=== PATIENT | male | born 1955 | race Caucasian/White ===

== ENCOUNTER 2017-07-03 16:01 | Inpatient (IN) | payer OTHER ==
[~2017-07-03] VITALS: Ht 167.6 cm; Wt 95.5 kg
[2017-07-03 18:31] VITALS: BP 96/63; PULSE 60; RESP 16; O2SAT 96
[2017-07-03] MEDS ORDERED: PANT20T PO (18:35)
--- NOTE | 2017-07-03 19:11 | NUR ---
Admit note Patient arrived to room via ALS at 1820, awake a/o x 4, denies chest pain, nausea or sob. Amb indep in room, steady gait. VSS, tele SB 60. Patient oriented to call light, phone, tv bathroom and poc. Dr Fan paged and orders recieved to continue Heparin gtt cardiac protocol.
[2017-07-03 19:44] VITALS: BP 124/68; PULSE 80; RESP 16; O2SAT 97
[2017-07-03] MEDS ORDERED: Ondansetron 2 mg/mL 2 mL Inj IVPUSH PRN (20:30)
[2017-07-03] MEDS ORDERED: Heparin 5,000 Unit/mL Inj IVPUSH PRN (20:30)
[2017-07-03] MEDS ORDERED: Atropine 1 mg/10 mL (Code) Syringe IVPUSH PRN (20:30)
[2017-07-03] MEDS ORDERED: Alum-Mag Hydrox-Simeth 30 mL Suspension PO PRN (20:30)
[2017-07-03] MEDS ORDERED: Heparin 25K Unit/500mL 0.45 NS 25,000 UNIT in IV Premix 1 EACH IV SCH (20:30)
[2017-07-03] MEDS ORDERED: Senna-Docusate 8.6-50 mg Tablet PO PRN (20:30)
[2017-07-03] MEDS ORDERED: Polyethylene Glycol (PEG) 17 Gm Powder PO PRN (20:30)
--- NOTE | 2017-07-03 21:32 | PCM.HPMED ---
Subjective Date of Service Jul 03, 2017 Primary Provider: Admitting Physician: Vincent Hermosillo DO Primary Care Physician: Zachary Attending Physician: Vincent Hermosillo DO Admit Status: Direct Admit ([facility]) Chief Complaint: chest pressure History of Present Illness: Mr. Melgar is an extremely pleasant 61-year-old gentleman with no known coronary artery disease, no known history of diabetes, and never smoker, that presented to [facility] with a 2 day history of chest pressure associated sore throat sensation, AMARO, nausea, and radiation of pressure to his neck. Initial workup revealed abnormal EKG findings of anterolateral ST depressions and inferior Q waves, in addition to an elevated troponin I. He was transferred to [facility] after consultation with our cardiology team for further evaluation and workup of NSTEMI, including initiation of heparin drip. - Hospital day one Mr. Melgar states that he has been working with renovations on his new home, including a significant amount of yard work. The day prior to admission, he noted that his throat began to hurt, similar to a sore throat, and he began to have trouble swallowing. At that time, he also noticed that he developed chest pressure which seemed to have radiated from his abnormal throat symptoms. He denied any associated shortness of breath at that time. Day of admission, he noted that he began to feel worse, and sought care be. That would be, EKG revealed anterolateral ST depressions, and stat labs revealed an elevated troponin I. He describes the feeling as a mild chest pressure, where he feels "off" and feels as if he should "slow down." He cannot identify any exacerbating triggers, as he does not believe it is associated with exertion, as he was working in his yard and the pain did not increase. Denies any associated shortness of breath, cough, fever, emesis. He did admit to some mild nausea, headache. He denies any history of similar symptoms or presentation. He does note a history of GERD, but he describes this pain as feeling "different," and he also denies history of tobacco use. He states that the symptoms leading to his admission lasted approximately 15 minutes, and presented in a waxing and waning fashion. Denied any associated blurred vision with the symptoms. [facility] cardiology team was contacted at [facility], and recommendations included transfer patient to our facility, and initiation of a heparin drip, with plans for possible catheterization. At [facility], initial labs included white count 12.5, hemoglobin 15.2, hematocrit 44.9, platelets 226; sodium 140, potassium 4.0, creatinine 1.2; total bili 2.1, AST 90, ALT 66, alkaline phosphatase 62; troponin I or 0.00, lipase 22; EKG from [facility] revealed anterior and lateral ST depressions and inferior lead Q waves with a QTC of 403 and a rate of 77. Patient was diagnosed with an STEMI and transferred to [facility] on heparin gtt and possible plan for catheterization. Patient was transferred in stable condition. Review of Systems: Complete ROS obtained, pertinent positives and negatives as noted in HPI Allergies Coded Allergies: No Known Allergies (Unverified , 07/03/17) Home Medications Pt reports: Pantoprazole daily Denies any other medications PMH Pt reports: GERD Denies h/o CAD, DM, CVA/TIA Surgical History None reported Family History Pt reports: Paternal side of family has extensive coronary artery disease with multiple instances of myocardial infarction and CABG. 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 Hx Alcohol Use: Yes Alcoholic Drinks Per Day: 1-2 week Hx Substance Use: No Living Arrangement: with Family (with , Evelyn Evangelista) Exam Vital Signs Vital Sign - Last Date Time Temp Pulse Resp B/P Pulse Ox O2 Delivery O2 Flow Rate FiO2 07/03/17 19:44 36.8 80 16 124/68 97 Room Air Exam General: Alert and oriented 3; pleasant gentleman resting supine in bed in no acute distress HEENT: Atraumatic, normocephalic, sclera anicteric, membranes moist Neck: Full range of motion without pain Cardiac: Regular rate and rhythm at time of examination without any appreciable murmurs Respiratory: Equal airflow all centeno without any wheeze or rhonchi Abdomen: Soft, nontender, nondistended Extremities: No edema appreciated Skin: Warm and dry MSK: 5/5 strength 4/4 extremities at major joints of the shoulder, hip Neuro: Cranial nerves II-XII grossly intact, speech without slur, facial expressions equal and symmetric Psych: Appropriate mood, affect, and responses to questions; good insight and judgment Assessment & Plan Mr. Melgar is an extremely pleasant 61-year-old gentleman with no known coronary artery disease, no known history of diabetes, and never smoker, that presented to [facility] with a 2 day history of chest pressure associated sore throat sensation, AMARO, nausea, and radiation of pressure to his neck. Initial workup revealed abnormal EKG findings of anterolateral ST depressions and inferior Q waves, in addition to an elevated troponin I. He was transferred to [facility] after consultation with our cardiology team for further evaluation and workup of NSTEMI, including initiation of heparin drip. - Hospital day one NSTEMI, acute, present on admission, under evaluation - [facility] EKG: ant/lat ST depression with inferior lead Q waves; QTc 403, P77 - Initial troponin I: 4.00; continue to trend troponin - EKG prn CP/cardiac sx - Morphine prn - Cardiology consult order placed; Dr. Fan was contacted by [facility] - Continue heparin gtt/cardiac protocol - NPO midnight - Tele - AM EKG - Labs to [facility] CP: thyroid, electrolytes, troponin, CK, lipids - Initiated beta blockade, statin, ASA Elevated LFTs, chronicity unknown, present on admission, presumed stable - [facility] labs: total bili 2.1, AST 90, ALT 66, alk phos 52 - Pt reports 1-2 whiskey/week - Consider abd U/S for further evaluation GERD, chronic, presumed stable - Continue home PPI History of treated latent TB, chronic, presumed stable - CXR report from [facility]: "suspect chronic lung disease" - No h/o tobacco use - Repeat CXR in am PRN: bowel, fever, pain, nausea GI: PPI DVT: On cardiac hep gtt Diet: NPO midnight (0000 07/04/2017) Code: FULL CODE Pt Status: Due to presenting symptoms, risk of adverse events, and likely course of care, patient likely to stay greater than 2 midnights; admitted as inpatient status Pain Evaluation: Adequate Pain Control GI Prophylaxis: Proton Pump Inhibitor VTE Prophylaxis: Other (cardiac hep gtt) Resuscitation Status: CPR: Attempt Resuscitation Attending Statement The patient was seen and examined together with Dr. Santos on 07/03 and I agree with the history, exam and plan as outlined in the note above. Sulma Santos DO Jul 03, 2017 20:10 Darren Montalvo MD Jul 04, 2017 01:24
[2017-07-03] MEDS ORDERED: Famotidine Inj 20 MG in IV Premix 1 EACH IV SCH (21:36)
[2017-07-03 21:44] LABS: TROPONIN T 0.565 ug/L (0.0-0.011)
[2017-07-03 23:19] VITALS: BP 100/64; PULSE 60; RESP 18; O2SAT 97
[2017-07-03 23:20] VITALS: BP 100/64; PULSE 60; RESP 18; O2SAT 97
[2017-07-04] VITALS (15 sets, daily range): BP systolic 93–107; BP diastolic 54–65; PULSE 52–65; RESP 12–23; O2SAT 90–98
[2017-07-04] MEDS: Sodium Chloride LOK Flush 10 mL Syringe IVFLUSH SCH ×3 (00:30→18:44)
[2017-07-04 03:54] LABS: BASOPHILS % (AUTO) 0.1 % (0-3); EOSINOPHILS % (AUTO) 0.2 % (0-5); MONOCYTES % (AUTO) 9.3 % (4-12); Mean Corpuscular Hemoglobin 30.7 pg (27.0-35.0); Mean Corpuscular Volume 90.2 fL (81-100); NEUTROPHILS % (AUTO) 78.5 % (40-74); Platelet Count 218 bil/L (150-400)
[2017-07-04 04:36] LABS: Magnesium 1.9 mg/dL (1.6-2.6); Phosphorus 3.7 mg/dL (2.5-4.9)
[2017-07-04 04:38] LABS: TROPONIN T 1.01 ug/L (0.0-0.011)
--- NOTE | 2017-07-04 04:41 | NUR ---
Heparin/Labs/NPO Cardiac heparin gtt infusing at 1350 units/hour, last PTT 61. Troponin elevated to 1.01, CK-MB 109.5. Page to hospitalist resident. Patient denies chest pain and shortness of breath. NPO after midnight pending cath procedure.
[2017-07-04] MEDS ORDERED: Pantoprazole 4 mg/mL 10 mL Inj IVPUSH SCH (07:30)
--- NOTE | 2017-07-04 09:27 | PCM.PNMED ---
Subjective Date of Service Jul 04, 2017 Subjective Overnight patient reports no events. Mostly restful night aside from the continual interruptions from hospital staff. Heparin continues. Troponin continues to trend up last measurement 1.01. Nothing by mouth after midnight, pending cath procedure today. Exam Vital Signs Vital Sign - Last Date Time Temp Pulse Resp B/P Pulse Ox O2 Delivery O2 Flow Rate FiO2 07/04/17 08:18 36.5 62 12 101/62 93 Room Air Intake and Output 07/03/17 07/03/17 07/04/17 Cumulative From/Thru 15:00 23:00 07:00 07/03/17 18:30 - 07/04/17 05:46 Intake Total 335 ml 335 ml Output Total 500 ml 500 ml Balance -165 ml -165 ml Intake Oral 0 ml 0 ml IV Total 335 ml 335 ml Output Urine Total 500 ml 500 ml # Bowel Movements 0 0 Exam General: Lying in hospital bed in no acute distress, well-developed, well- nourished, appropriately interactive HEENT: Normocephalic, atraumatic. Pupils equal, round, and reactive to light and accommodation. Anicteric sclerae moist mucosa. Neck: Supple with full range of motion. No jugular venous distension. Cardiovascular: Regular rate and rhythm with no murmurs, rubs, or gallops appreciated Pulmonary: Clear to auscultation bilaterally with no crackles, wheezes, or rhonchi. Normal respiratory effort with no use of accessory muscles. Abdomen: Soft, nontender, nondistended. Extremities: No clubbing, cyanosis, edema Skin: Normal temperature, turgor, and texture Neurological: Cranial nerves grossly intact. Psychiatric: Normal mood and affect. Alert and oriented to person, place, and time. IVs and Medications Medications Reviewed: Medications were reviewed in detail Lab and Diagnostics Result Diagram: 07/04/17 0345 07/04/17 0345 X-Rays, CTs and MRIs . X-RAY CHEST ONE VIEW, PORTABLE IMPRESSION: No acute cardiopulmonary disease. Dictated by: Irineo BATEMAN Interpreted: Jayne Tian MD on 07/04/2017 Assessment & Plan Mr. Melgar is an 61-year-old gentleman with no known coronary artery disease, no known history of diabetes, never smoker admitted for NSTEMI NSTEMI, acute, present on admission, under evaluation - [place] EKG: ant/lat ST depression with inferior lead Q waves; QTc 403, P77 - Troponin continues to be elevated - EKG prn CP/cardiac sx - Morphine prn - Scheduled for cardiac catheterization technician today - Continue heparin gtt/cardiac protocol - NPO midnight - Tele - Initiated beta blockade, statin, ASA Elevated LFTs, chronicity unknown, present on admission, presumed stable - [facility] labs: total bili 2.1, AST 90, ALT 66, alk phos 52 - Pt reports 1-2 whiskey/week - We will consider abd U/S for further evaluation, post catheterization GERD, chronic, presumed stable - Continue home PPI History of treated latent TB, chronic, presumed stable - CXR report from [facility]: "suspect chronic lung disease" - No h/o tobacco use - Repeat CXR no cardiopulmonary disease PRN: bowel, fever, pain, nausea GI: PPI DVT: On cardiac hep gtt Diet: NPO midnight (0000 07/04/2017) Code: FULL CODE Pt Status: Remains inpatien, pending catheterization lab results GI Prophylaxis: Proton Pump Inhibitor VTE Prophylaxis: Other (cardiac hep gtt) Resuscitation Status: CPR: Attempt Resuscitation Time spent 20 minutes Attending Statement Patient has been seen and examined by myself with medical front desk coordinator and agree with above history, physical, assessment and plan. YANETH MIRANDA DO Jul 04, 2017 09:27 Megan Barry MD Jul 04, 2017 15:59 YANETH MIRANDA DO Jul 04, 2017 09:27
--- NOTE | 2017-07-04 09:30 | DRSVH ---
PROCEDURE: X-RAY CHEST ONE VIEW, PORTABLE ([id number]) INDICATIONS: CHEST PAIN TECHNIQUE: One view of the chest was acquired. COMPARISON: None. FINDINGS: Surgical changes and devices: None. Lungs and pleura: No pleural effusions or pneumothorax. Lungs are clear. Mediastinum: Mediastinal contours appear normal. Heart size is normal. Bones and chest wall: No suspicious bony lesions. Overlying soft tissues appear unremarkable. IMPRESSION: No acute cardiopulmonary disease. Dictated by: Irineo BATEMAN Interpreted: Jayne Tian MD on 07/04/2017 at 9:11 Approved by: Jayne Tian M.D. on 07/04/2017 at 9:28
[2017-07-04] MEDS ORDERED: 0.9% Sodium Chloride 1,000 ML IV ONE (12:57)
--- NOTE | 2017-07-04 13:20 | CONS ---
[address] [address] CONSULTATION REPORT PATIENT: JANELLE MARSH : 1955 MR#: [id number] ADMIT: 07/03/2017 JOB ID: [id number] CARDIOLOGY CONSULTATION: DATE OF SERVICE: 07/04/2017 CHIEF COMPLAINT: Shortness of breath. HISTORY OF PRESENT ILLNESS: The patient is a 61-year-old man with substernal chest pain and shortness of breath that started as he was weed whacking his property. He says that this started quite abruptly. He had two episodes yesterday; each episode lasted 15 minutes and this problem was associated with dynamic ST depressions and elevated troponin T. Cardiology is consulted to assist with management. He says that the first episode began after he was weed whacking outside and it resolved after resting. The second episode occurred when he was cleaning cobwebs in a [place] garage. He says the chest pain shot into his neck. At this moment in time, he is chest-pain free. PAST MEDICAL HISTORY: 1. Hyperlipidemia - controlled. 2. Gastroesophageal reflux disease. PAST SURGICAL HISTORY: None. FAMILY HISTORY: Significant for coronary artery disease in all his male relatives. He says nobody has lived to be over 60 years old in his family. SOCIAL HISTORY: The patient is a lifetime nonsmoker. He is accompanied today by his . 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 ALLERGIES: No known drug allergies. MEDICATIONS: At home: Protonix 20 mg daily. Hospital medications: 1. Famotidine 20 mg twice a day. 2. Metoprolol tartrate 12.5 mg twice a day. 3. Aspirin 81 mg daily. 4. Lipitor 40 mg daily. REVIEW OF SYSTEMS: No gastrointestinal bleeding. No hematuria. No epistaxis. Otherwise 10 point review of systems is negative. PHYSICAL EXAMINATION: The patient appears his stated age. Eyes: No scleral icterus. Neck is supple. No lymphadenopathy. Head: Normocephalic, atraumatic with male pattern baldness. Heart normal S1, S2. No murmurs. Lungs: Clear to auscultation anteriorly. Abdomen is soft, positive bowel sounds. No hepatosplenomegaly. Extremities warm and well perfused. No clubbing, cyanosis, or edema. Skin: No rashes or lesions. Vascular exam: Right common femoral artery vascular exam shows no bruits and normal intact pulsation. LABORATORY DATA: Labs reviewed. CBC is significant for elevated white count with left shift. Hematocrit is normal. Creatinine is 1. Mild transaminitis. AST 128, ALT 65, troponin T peaked at one. TSH, free T4 are normal. Total cholesterol 170, triglycerides 94, HDL 43, LDL 108. CARDIAC DATA: The patient's EKG demonstrates normal sinus rhythm. Normal axis. No left ventricular hypertrophy. There is [address] depression in lead 1, V5 and V6. Echocardiogram is ordered and is pending. ASSESSMENT AND PLAN: In summary, this is a 61-year-old man admitted with a non-ST segment elevation myocardial infarction. He has elevated troponin and ST changes. He would benefit from cardiac catheterization and possible stenting. Consent obtained, all questions answered. Order placed. Thank you very much for the opportunity to evaluate this patient.
--- NOTE | 2017-07-04 13:57 | NUR ---
Social Work: Initial Assessment/Multidisciplinary Rounds D: Per EMR Review, pt is a 61 year old male admitted for Increased Trop, N Stemi. Pt is Don Jones with no LTC or VA benefits. Pt does not have a PCP and declined an appointment at the [facility]. NOK is Keyla Melgar, , . Advanced directives completed- WOOL FLEECE GRADER requested copy for chart. Readmit score is low, 0/8. Pt discussed in Multidisciplinary rounds. Capacity for self care discussed; no concerns or needs at this time. WOOL FLEECE GRADER met with patient at bedside with present. Sw role explained, contact info and d/c planning checklist provided. See initial assessment. Pt lives in [place] with his , in a two story home with no steps to enter. Pt states the main living quarters are on the main floor. Pt expresses no concerns navigating stairs. Pt is I with ADLs, uses no DME and have never had HH or Skilled rehab. Pt and both anticipate pt to discharge home via POV once medically stable. A: Pt who is I at baseline. P: Anticipate pt to discharge home via POV once medically stable; WOOL FLEECE GRADER to continue to follow to assess for discharge needs. ASHER Sullivan Addendum: 07/04/17 at 1401 by JENNY GIRARD Amended: Links added.
[2017-07-04] MEDS ORDERED: Heparin 1,000 Units/500 mL NS Premix IV ONE (14:12)
[2017-07-04] MEDS ORDERED: Heparin 10,000 Unit/1,000 mL NS Premix IV ONE (14:12)
--- NOTE | 2017-07-04 14:39 | NUR ---
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 Pt stable and w/o complaints. Heparin dc'd prior. Right dorsalis pedis pulse marked. Will await pt return.
[2017-07-04] MEDS ORDERED: fentaNYL-PF 50 mCg/mL 2 mL Inj ONE (14:47)
[2017-07-04] MEDS ORDERED: Heparin 1,000 Unit/mL 10 mL Inj ONE (15:17)
[2017-07-04] MEDS ORDERED: Atropine 1 mg/10 mL (Code) Syringe ONE (15:24)
--- NOTE | 2017-07-04 16:08 | CS94 ---
[address] [address] DIAGNOSTIC CARDIAC CATHETERIZATION PATIENT: JANELLE MARSH : 1955 MR#: [id number] ADMIT: 07/03/2017 JOB ID: [id number] SERVICE DATE: 07/04/2017 CARDIAC CATHETERIZATION: PATIENT PRESENTATION: The patient is a 61-year-old man with hypertension, hyperlipidemia comes in with non STEMI and referred for cardiac catheterization. PROCEDURES PERFORMED: 1. Right common femoral artery vascular access under ultrasound guidance. 2. Right common femoral artery femoral angiogram. 3. Cardiac catheterization-selective coronary angiograms. 4. Hemodynamic measurement left ventricular end-diastolic pressure. METHOD: Following informed consent, the patient was prepped and draped in the usual sterile fashion. A 6-Ukrainian sheath was placed in the right common femoral artery. Sheath placement was confirmed via femoral angiogram. JL-4 and JR-4 catheters were used to engage left main and right coronary artery ostia respectively. Hand injection in craniocaudal angulation was used to obtain selective coronary angiograms. All exchanges were performed over a wire. Pigtail was placed into the left ventricle. Left ventricular end-diastolic pressure was recorded. The pigtail was withdrawn from the left ventricle into the aorta under continuous hemodynamic monitoring. There were no complications in the immediate postprocedure period. FINDINGS: HEMODYNAMICS: Heart rate 67 beats per minute. Blood pressure was 105/10. Left ventricular end-diastolic pressure was 30 mmHg. There was no evidence of aortic stenosis based on pullback. FEMORAL ANGIOGRAM: Right common femoral artery gives rise to SFA and profunda. The sheath enters the right common femoral artery at the lower third of the femoral head. There is no evidence of contrast extravasation or dissection. CORONARY ANGIOGRAMS: Left main gives rise to SFA and profunda. There is excellent blow-back and no dampening on engagement. Left anterior descending wraps around the vessel. It demonstrates some 40%-50% mid LAD stenosis immediately following the first septal perforators. However, these lesions do not appear to be hemodynamically significant. Left anterior descending gives rise to medium first diagonal branch, medium second diagonal branch, and some small additional diagonal branches. There is also a medium-sized third diagonal branch. Again, while there is some nonobstructive disease present, the worst disease is localized just proximal to the third diagonal branch and it is about 50% stenosis. Circumflex is a nondominant vessel. It gives rise to a big first obtuse marginal branch, medium second obtuse marginal branch. No obstructive lesions are seen. There is a 30%-40% proximal circumflex lesion. Right coronary artery: This is a dominant vessel which is primarily fed via left to right collaterals. This vessel is occluded in its distal portion. IMPRESSION: 1. A 50% mid left anterior descending lesion. 2. Occluded mid right coronary artery with [id number] collaterals. PLAN: Proceed with right coronary artery intervention and workup the left anterior descending lesion at a later date. Thank you very much for the opportunity to participate in this patient's care.
[2017-07-04] MEDS ORDERED: 0.9% Sodium Chloride 250 ML BOLUS IV PRN (16:40)
[2017-07-04] MEDS ORDERED: Atropine 1 mg/10 mL (Code) Syringe IVPUSH PRN (16:40)
[2017-07-04] MEDS ORDERED: Ondansetron 2 mg/mL 2 mL Inj IVPUSH PRN ×2 (16:40→19:10)
[2017-07-04] MEDS ORDERED: 0.9% Sodium Chloride 400 ML (4 HRS) IV ONE (16:40)
[2017-07-04] MEDS ORDERED: Clopidogrel 300 mg Tablet (LOADING DOSE) PO ONE (16:40)
[2017-07-04] MEDS ORDERED: Sodium Chloride LOK Flush 10 mL Syringe IVFLUSH PRN (16:40)
--- NOTE | 2017-07-04 16:54 | NUR ---
Edwardo Coronado R.N. Pt remains stable, right groin intact. Dr Fan at bedside to speak with patient and his .
--- NOTE | 2017-07-04 17:17 | NUR ---
Received pt. care. Pt. denies complaints and is lying resting quietly with at bedside.
--- NOTE | 2017-07-04 17:38 | DI95 ---
[address] [address] INTERVENTIONAL CARDIAC CATHETERIZATION PATIENT: JANELLE MARSH : 1955 MR#: [id number] ADMIT: 07/03/2017 JOB ID: [id number] PROCEDURE: Percutaneous intervention on chronically occluded RCA. PROCEDURAL DETAILS: The reader is referred to the procedure log for complete details. Briefly, right femoral approach, 6-[place]awk system. A right coronary guide was placed in the RCA and a Runthrough wire was used to cross this lesion. Further details are enumerated in the procedure log, to which the reader and the coders are referred. Briefly, Dr. Fan performed a diagnostic angiogram. This patient was found to have a totally occluded distal RCA with a flush occlusion. Well developed collaterals were seen from left to right. I was asked to consider an intervention on this TRAVEL CONSULTANT. PROCEDURAL DETAILS: Interventional report: We were able to cross this lesion with a Runthrough wire. The lesion was dilated with a 2.0 balloon. There was a lot of elastic recoil. We had to use a noncompliant 2.5 mm x 15 mm balloon and multiple inflations had to be done. We were finally able to establish flow into the distal RCA. The RCA was then stented with a 2.5 x 15 mm stent distally before the crux and an overlapping 3.25 x 18 mm stent was deployed. The 1st stent was an Sekou drug coated stent and the 2nd stent was a Xience drug-coated stent. Overlapping inflations were then done. Final angiographic results were excellent. In summary, successful recanalization of the RCA. The patient is advised dual antiplatelet therapy for at least six months post procedure.
--- NOTE | 2017-07-04 18:05 | NUR ---
Report Report given to Everton Pablo and pt. transferred to [facility]. Pt. lying quietly, denies complaints.
--- NOTE | 2017-07-04 18:35 | NUR ---
Transfer of MADHAV Pt transferred at 181. Right groin stable, CMS intact to RLE. No c/o pain. VSS. Tele placed. Pt off bedrest and sat up in bed for dinner. Fluids encouraged. at bedside. Will continue to monitor.
[2017-07-04] MEDS ORDERED: 0.9% Sodium Chloride 250 ML IV PRN (19:07)
[2017-07-04] MEDS ORDERED: 0.9% Sodium Chloride 1,000 ML IV PRN (19:07)
[2017-07-05] VITALS (8 sets, daily range): BP systolic 90–114; BP diastolic 48–70; PULSE 60–74; RESP 16; O2SAT 93–97
[2017-07-05] MEDS: Sodium Chloride LOK Flush 10 mL Syringe IVFLUSH SCH ×2 (00:24→08:35)
[2017-07-05] MEDS ORDERED: 0.9% Sodium Chloride 250 ML IV ONE (00:40)
--- NOTE | 2017-07-05 01:18 | NUR ---
Hypotension BP trending down, currently 90/56 P 61 sinus rhythm. Rec'd orders per Dr. Santos for 250 cc NS bolus, given at 0110. Pt denies dizziness/lightheadedness. All other VSS. Addendum: 07/05/17 at 0523 by KAREN MATTHEW RN SBP remained >100/MAP >65 after 250cc NS bolus. R groin site soft, mildly tender with movement, no drainage noted. Plan for EKG this AM.
[2017-07-05 04:40] LABS: BASOPHILS % (AUTO) 0.2 % (0-3); EOSINOPHILS % (AUTO) 0.2 % (0-5); MONOCYTES % (AUTO) 12.2 % (4-12); Mean Corpuscular Hemoglobin 30.5 pg (27.0-35.0); Mean Corpuscular Volume 90.4 fL (81-100); NEUTROPHILS % (AUTO) 68.4 % (40-74); Platelet Count 170 bil/L (150-400)
--- NOTE | 2017-07-05 09:18 | NUR ---
Blood pressure Left arm BP 101/48, Right arm BP 107/70. Metoprolol 12.5 mg PO given. notified. Care continues.
--- NOTE | 2017-07-05 10:48 | PROG NOTE ---
[address] [address] PROGRESS NOTE PATIENT: JANELLE MARSH : 1955 MR#: [id number] ADMIT: 07/03/2017 JOB ID: [id number] DATE: 07/05/2017 SUBJECTIVE: Overnight, the patient had no recurrence of chest discomfort. He says he feels much better after his intervention. OBJECTIVE: Vital signs reviewed. A well-nourished man in no apparent distress. Heart: Normal S1, S2. No murmurs, rubs, or gallops. Lungs: Clear to auscultation anteriorly. Abdomen: Soft. Positive bowel sounds. No hepatosplenomegaly. Extremities: Warm and well perfused. No clubbing, cyanosis, or edema. Skin: No rashes or lesions. Right common femoral artery vascular access site showed no ecchymosis, no bruit and no hematoma. Chest x-ray not available for review. EKG this morning shows Q-waves in leads III and aVF, with a [address]-depression in leads V4, V5 and V6. Stent card reviewed. Shows that patient has Resolute Sekou 2.5 x 15 mm drug-eluting stent deployed to mid right coronary artery. ASSESSMENT: In summary, this is a delightful 61-year-old man with strong family history of coronary artery disease. He comes in with non-STEMI. Yesterday, he was found to have an occluded right coronary artery and underwent percutaneous coronary intervention with a Resolute drug-eluting stent. PLAN: The patient will be discharged today after his echocardiogram. He will be discharged on: 1. Aspirin 81 mg daily. 2. Plavix 75 mg daily. 3. Lipitor 40 mg daily. 4. Toprol-XL 25 mg daily. 5. Lisinopril 2.5 mg daily. 6. He will be also sent home on nitroglycerin as needed. Thank you very much for the opportunity to evaluate this patient.
--- NOTE | 2017-07-05 11:37 | PCM.DIMED ---
Discharge Instructions Date of Service Jul 05, 2017 Dates of Hospitalization Jul 03, 2017 at 18:16 Discharge Diagnosis Discharge Diagnosis NSTEMI secondary to acute coronary syndrome Elevated liver function tests Gastroesophageal Reflux disease History of treated latent TB Medication Instructions Additional med instructions Please continue to take your regularly prescribed medications In addition to your reguarly prescribed medications, you are being discharged with the following medications: 1. Aspirin 81 mg daily. 2. Plavix 75 mg daily. 3. Lipitor 40 mg daily. 4. Toprol-XL 25 mg daily. 5. Lisinopril 2.5 mg daily. 6. Nitroglycerin as needed. Test Results Test Results Occluded right coronary artery requiring placement of drug-eluting stent. Diet Discharge Diet: Heart Healthy Activity Discharge Activity: Limited until seen by PCP Call your provider Call your provider for: Fever or Chills, Shortness of breath, Bleeding, Chest pain, Vomitting, Excessive diarrhea, Weakness (unilateral) Patient Instructions Patient Instructions Please follow up with the residency clinic in the next week or two regarding your hospital visit. Please follow up with [facility] cardiology in one month Follow-up Provider: [facility] Follow-up with PCP in: 1 week Provider: Carola Fan MD Follow-up in: 4 weeks YANETH MIRANDA DO Jul 05, 2017 11:37
[2017-07-05] MEDS ORDERED: ASPI81TA3 PO (11:39)
[2017-07-05] MEDS ORDERED: NITR0.4T SL (11:39)
[2017-07-05] MEDS ORDERED: CLOP75TA28 PO (11:39)
[2017-07-05] MEDS ORDERED: LISI-571 PO (11:39)
[2017-07-05] MEDS ORDERED: METO25TA99 PO (11:39)
[2017-07-05] MEDS ORDERED: ATOR20TA65 PO (11:39)
--- NOTE | 2017-07-05 12:04 | NUR ---
Social Work- Readiness for Discharge/ Multidisciplinary Rounds Data: EMR reviewed. Pt is on day 2 of hospitalization for increased trop, NSTEMI. Pt discussed in rounds, pt is likely to d/c today. No SW needs identified in rounds. No orders are active at this time. SW met with pt at bedside regarding d/c plan. Pt confirms d/c plan of home with to transport via POV. Pt denies questions or concerns related to d/c planning. Assessment: Pt who is independent at baseline. Plan: Pt to d/c home with his to transport via POV. No d/c planning needs at this time. Shira Kyle MSW
--- NOTE | 2017-07-05 12:12 | DRSVH ---
[facility] [address] [place] [address] Echocardiogram Report Name: JANELLE MARSH EStudy Date: 07/05/2017 Height: 66 in Hospital Exam Location: [facility] Weight: 211 lb Gender: Male BSA: 2.0 m2 : 1955 Age: 61 yrs Reason For Study: NSTEMI Ordering Physician: Carola Fan Performed By: Shubham Blanchard Referring Physician: Casper Vargas Interpretation Summary 1) Normal left ventricular thickess and size with low normal systolic function (EF about 55%). 2) Hypokinesis of the basal to mid inferior and basal inferolateral segments. 3) Normal right ventricular size and function. 4) No significant valvular abnormalities. 5) No prior Echo available for comparison. Procedure: A two-dimensional transthoracic echocardiogram with color flow and Doppler was performed. The study quality was technically adequate. There is no prior echocardiogram noted for this patient. The patient was in normal sinus rhythm during the exam. Left Ventricle: The left ventricle is normal in size. There is normal left ventricular wall thickness. Left ventricular systolic function is normal. Left ventricular ejection fraction is estimated to be 55 +/- 5%. Hypokinesis of the basal to mid inferior and basal inferolateral segments. Assessment of diastolic parameters indicates a relaxation abnormality of the left ventricle, consistent with normal filling pressures. Right Ventricle: The right ventricle is normal in size, thickness and function. Atria: The left atrium is moderately dilated. Right atrial size is normal. The interatrial septum is intact with no evidence for an atrial septal defect. Mitral Valve: The mitral valve is normal. There is mild to moderate mitral regurgitation. Aortic Valve: The aortic valve is normal in structure and function. There is no aortic valve stenosis. No aortic regurgitation is present. Tricuspid Valve: The tricuspid valve is normal. Pulmonary artery pressures cannot be estimated because of the lack of a measurable TR jet velocity. There is a trace or physiologic amount of tricuspid regurgitation. Pulmonic Valve: The pulmonic valve leaflets are thin and pliable; valve motion is normal. There is a trace or physiologic amount of pulmonic regurgitation. Great Vessels: The aortic root is normal size. The ascending aorta is at the upper limits of normal in size. The pulmonary artery is normal size. The IVC is dilated (diameter is greater than 2.1 cm) yet it collapses greater than 50% with a sniff. This suggests a right atrial pressure of 8 mm Hg. Pericardium/ Pleura There is no pericardial effusion. There is no pleural effusion. MMode/2D Measurements & Calculations LVIDd: 5.3 cm RA long axis LVOT diam LVIDs: 4.3 cm LA A2 area: 23.6 cm FS: 18.5 % LA A4 area: 21.2 cm RA area AoV Opening EPSS: 0.40 cm LA length (vol): 5.5 cm IVSd: 1.0 cm LA vol: 77.5 ml : 14.8 cm Ao root diam LVPWd: 0.91 cm LA vol index RA vol : 39.6 ml asc Aorta RA Diam: 3.5 cm IVC diam: 2.5 cm : 19.4 mm2 LV quigley. diameter/BSA LV sys. diameter/BSA RVD1 (basal) TAPSE: 2.4 cm (cm/m^2): 2.6 (cm/m^2): 2.1 Doppler Measurements & Calculations Ao V2 max MV E max pedro MV E/A: 1.4 PA V2 max : 107.0 cm/sec : 67.4 cm/sec Med Peak E' Pedro : 88.1 cm/sec Ao max PG MV A max pedro PA mean PG : 4.6 mmHg : 48.9 cm/sec E/E' med: 9.3 : 1.7 mmHg Ao mean PG MR ERO: 0.16 cm2 Lat Peak E' Pedro LVOT Max Pedro E/E' lat: 6.3 : 92.8 cm/sec E/e' average: 7.8 ALVIN(I,D): 3.8 cm sev ratio MV dec time Ao V2 mean LV V1 max PG MR flow rate : 0.20 sec : 73.0 cm/sec Ao V2 VTI: 19.5 cm LV V1 VTI: 17.4 cm: 69.4 cm3/sec MR PISA radius ALVIN(V,D): 3.7 cm2 PA V2 mean ALVIN indexed to BSA : 63.1 cm/sec (cm^2/m^2): 1.9 PA pr(Accel) : 44.7 mmHg Reading Physician:12:12 PM
--- NOTE | 2017-07-05 14:13 | NUR ---
Social Work- Discharge Data: EMR reviewed. Pt is on day 2 of hospitalization for increased trop, NSTEMI. Pt to d/c. Orders are active. Pt to d/c home with to transport via POV. Assessment: Pt who is independent at baseline. Plan: Pt to d/c home with his to transport via POV. No d/c planning needs at this time. Shira Kyle MSW
--- NOTE | 2017-07-05 15:54 | NUR ---
Discharge Pt discharged at approximately 1545 to home with . Pt given educational material for Stents, Stent placement ID cards, six new prescription educational material for ASA, Lisinopril, Clopidogrel, Atorvastatin, Metoprolol, Nitroglycerin SL. Followup appt made with [facility], PCP to send referral for Cardiology Clinic appt. Pt acknowledged and understood all information. IV DC'd with catheter intact. Tele DC'd equipment maintenance tech notified. Pt left with all personal belongings. Escorted by this RN in wheelchair to front door.
--- NOTE | 2017-07-05 17:48 | PCM.DC.MED ---
Discharge Summary Date of Service Jul 05, 2017 Dates of Hospitalization Date of Hospital Admission Jul 03, 2017 at 18:16 Date of Discharge: Jul 05, 2017 Providers: Admitting Physician: Darren Montalvo MD Primary Care Physician: Zachary Attending Physician: Megan Barry MD Diagnosis at Time of Discharge Diagnosis at Time of Discharge NSTEMI secondary to acute coronary syndrome Elevated liver function tests Gastroesophageal Reflux disease History of treated latent TB Consultations Dr. Meng M.D., cardiology Procedures XRay, CTs & MRIs . X-RAY CHEST ONE VIEW, PORTABLE IMPRESSION: No acute cardiopulmonary disease. Dictated by: Irineo Cabezas [facility] Interpreted: Jayne Tian MD on 07/04/2017 Cardiac Echo Impression . Echocardiogram Report Interpretation Summary 1) Normal left ventricular thickess and size with low normal systolic function ( EF about 55%). 2) Hypokinesis of the basal to mid inferior and basal inferolateral segments. 3) Normal right ventricular size and function. 4) No significant valvular abnormalities. 5) No prior Echo available for comparison. Electronically signed by: Mamta Solorzano Other Diagnostics . INTERVENTIONAL CARDIAC CATHETERIZATION PROCEDURE: Percutaneous intervention on chronically occluded RCA. Briefly, Dr. Fan performed a diagnostic angiogram. This patient was found to have a totally occluded distal RCA with a flush occlusion. Well developed collaterals were seen from left to right. I was asked to consider an intervention on this [employer]INT [employer]. In summary, successful recanalization of the RCA. The patient is advised dual antiplatelet therapy for at least six months post procedure. Shaun Bernard MD 07/04/17 Brief History History and physical per . 07/03/2017 "Mr. Melgar is an extremely pleasant 61-year-old gentleman with no known coronary artery disease, no known history of diabetes, and never smoker, that presented to [facility] with a 2 day history of chest pressure associated sore throat sensation, AMARO, nausea, and radiation of pressure to his neck. Initial workup revealed abnormal EKG findings of anterolateral ST depressions and inferior Q waves, in addition to an elevated troponin I. He was transferred to [facility] after consultation with our cardiology team for further evaluation and workup of NSTEMI, including initiation of heparin drip. - Hospital day one Mr. Melgar states that he has been working with renovations on his new home, including a significant amount of yard work. The day prior to admission, he noted that his throat began to hurt, similar to a sore throat, and he began to have trouble swallowing. At that time, he also noticed that he developed chest pressure which seemed to have radiated from his abnormal throat symptoms. He denied any associated shortness of breath at that time. Day of admission, he noted that he began to feel worse, and sought care be. That would be, EKG revealed anterolateral ST depressions, and stat labs revealed an elevated troponin I. He describes the feeling as a mild chest pressure, where he feels "off" and feels as if he should "slow down." He cannot identify any exacerbating triggers, as he does not believe it is associated with exertion, as he was working in his yard and the pain did not increase. Denies any associated shortness of breath, cough, fever, emesis. He did admit to some mild nausea, headache. He denies any history of similar symptoms or presentation. He does note a history of GERD, but he describes this pain as feeling "different," and he also denies history of tobacco use. He states that the symptoms leading to his admission lasted approximately 15 minutes, and presented in a waxing and waning fashion. Denied any associated blurred vision with the symptoms. [facility] cardiology team was contacted at [facility], and recommendations included transfer patient to our facility, and initiation of a heparin drip, with plans for possible catheterization. At [facility], initial labs included white count 12.5, hemoglobin 15.2, hematocrit 44.9, platelets 226; sodium 140, potassium 4.0, creatinine 1.2; total bili 2.1, AST 90, ALT 66, alkaline phosphatase 62; troponin I or 0.00, lipase 22; EKG from [facility] revealed anterior and lateral ST depressions and inferior lead Q waves with a QTC of 403 and a rate of 77. Patient was diagnosed with an STEMI and transferred to [facility] on heparin gtt and possible plan for catheterization. Patient was transferred in stable condition." Hospital Course Mr. 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 Discharged on appropriate medications for newly received drug-eluting stent. NSTEMI, acute, present on admission, under evaluation - [facility] EKG: ant/lat ST depression with inferior lead Q waves; QTc 403, P77 - Troponin continued to trend up - Heparin gtt/cardiac protocol - Taken to trestle mainternance laborer received recannulization of the RCA Elevated LFTs, chronicity unknown, present on admission, presumed stable - [facility] labs: total bili 2.1, AST 90, ALT 66, alk phos 52 - Pt reports 1-2 whiskey/week - We will consider abd U/S for further evaluation as outpatient, physical examination on GERD, chronic, presumed stable - Continue home PPI History of treated latent TB, chronic, presumed stable - CXR report from [facility]: "suspect chronic lung disease" - No h/o tobacco use - Repeat CXR no acute cardiopulmonary disease Exam Vital Signs (Last) Date Time Temp Pulse Resp B/P Pulse Ox O2 Delivery O2 Flow Rate FiO2 07/05/17 12:04 36.8 71 16 114/70 97 Room Air Exam General: Lying in hospital bed in no acute distress, well-developed, well- nourished, appropriately interactive, present at bedside HEENT: Normocephalic, atraumatic. Pupils equal, round, and reactive to light and accommodation. Anicteric sclerae moist mucosa. Neck: Supple with full range of motion. No jugular venous distension. Cardiovascular: Regular rate and rhythm with no murmurs, rubs, or gallops appreciated Pulmonary: Clear to auscultation bilaterally with no crackles, wheezes, or rhonchi. Normal respiratory effort with no use of accessory muscles. Abdomen: Soft, nontender, nondistended. No hepatojugular reflex. Extremities: No clubbing, cyanosis, edema Skin: Normal temperature, turgor, and texture Neurological: Cranial nerves grossly intact. Psychiatric: Normal mood and affect. Alert and oriented to person, place, and time. Test 07/03/17 20:45 07/04/17 03:45 07/04/17 09:41 07/05/17 04:30 Hold Kumari Top Tube Received (Received) Phosphorus Level 3.7mg/dL (2.5-4.9) Total Creatine Kinase 759U/L (21-232) Creatine Kinase MB 109.5ng/mL (0.0-10.4) Creatine Kinase MB % 14.4% (0.0-5.0) Troponin T 1.01ug/L (0.0-0.011) Triglycerides Level 94mg/dL (0-149) Cholesterol Level 170mg/dL (100-199) LDL Cholesterol, Calculated 108.200mg/dL (0-99) VLDL Cholesterol 18.800mg/dL HDL Cholesterol 43mg/dL (>39) Cholesterol/HDL Ratio 3.95 (0.0-4.4) Thyroid Stimulating Hormone (TSH) 1.470uIU/mL (0.450-4.500) Free Thyroxine 1.03ng/dL (0.82-1.77) Activated Partial Thromboplast Time 50.8sec (22.8-33.0) White Blood Count 13.3th/mm3 (3.8-10.1) Red Blood Count 4.36mil/mm3 (4.40-5.80) Hemoglobin 13.3g/dL (13.8-17.2) Hematocrit 39.4% (41.0-50.0) Mean Corpuscular Volume 90.4fL (81-100) Mean Corpuscular Hemoglobin 30.5pg (27.0-35.0) Mean Corpuscular Hemoglobin Concent 33.8% (32.0-37.0) Red Cell Distribution Width 13.0% (12.3-15.4) Platelet Count 170bil/L (150-400) Neutrophils (%) (Auto) 68.4% (40-74) Lymphocytes (%) (Auto) 18.8% (14-46) Monocytes (%) (Auto) 12.2% (4-12) Eosinophils (%) (Auto) 0.2% (0-5) Basophils (%) (Auto) 0.2% (0-3) Sodium Level 137mEq/L (134-144) Potassium Level 4.3mEq/L (3.5-5.2) Chloride Level 104mEq/L (97-108) Carbon Dioxide Level 20mmol/L (18-29) Blood Urea Nitrogen 24mg/dL (6-24) Creatinine 0.99mg/dL (0.76-1.27) Estimat Glomerular Filtration Rate 82mL/min (>59) Glucose Level 107mg/dL (60-99) Lactic Acid Level 0.9mmol/L (0.4-2.0) Calcium Level 8.3mg/dL (8.5-10.1) Magnesium Level 2.0mg/dL (1.6-2.6) Total Bilirubin 2.7mg/dL (0.0-1.2) Aspartate Amino Transf (AST/SGOT) 121U/L (0-50) Alanine Aminotransferase (ALT/SGPT) 73U/L (0-44) Alkaline Phosphatase 62U/L (25-160) Total Protein 5.6g/dL (6.4-8.4) Albumin 3.6g/dL (3.4-5.0) Discharge Medications Discharge Medications Aspirin Chew (Aspirin Chew) 81 Mg Chew 81 MG PO DAILY Prescribed by: YANETH ZUNIGA DO Atorvastatin Calcium (Atorvastatin Calcium) 20 Mg Tablet 40 MG PO HS Prescribed by: YANETH ZUNIGA DO Clopidogrel (Clopidogrel) 75 Mg Tablet 75 MG PO DAILY Prescribed by: YANETH ZUNIGA DO Lisinopril (Lisinopril) 5 Mg Tablet 2.5 MG PO DAILY Prescribed by: YANETH ZUNIGA DO Metoprolol Succinate ER (Metoprolol Succinate ER) 25 Mg Tab.er.24h 25 MG PO DAILY Prescribed by: YANETH ZUNIGA DO Pantoprazole DR (Protonix) 20 Mg Tablet 20 MG PO DAILY (Reported) As needed Nitroglycerin SL (Nitrostat) 0.4 Mg Tab.subl 0.4 MG SL Q5MIN PRN PRN For Chest Pain IF SBP > 90 Prescribed by: YANETH ZUNIGA DO Additional med instructions Please continue to take your regularly prescribed medications In addition to your reguarly prescribed medications, you are being discharged with the following medications: 1. Aspirin 81 mg daily. 2. Plavix 75 mg daily. 3. Lipitor 40 mg daily. 4. Toprol-XL 25 mg daily. 5. Lisinopril 2.5 mg daily. 6. Nitroglycerin as needed. Followup Plan Disposition: Discharged home in stable condition Follow-up plan Patient will follow up at the residency clinic, has requested Dr. Zuniga to be his primary care provider. Discharge Diet: Heart Healthy Discharge Activity: Limited until seen by PCP Patient Instructions Please follow up with the residency clinic in the next week or two regarding your hospital visit. Please follow up with [facility] cardiology in one month Follow-up Provider: [facility] Residency Clinic Follow-up with PCP in: 1 week Provider: Carola Fan MD Follow-up in: 4 weeks Time spent 45 minutes Attending Statement Patient has been seen and examined by myself with medical officer psychiatry and agree with above history, physical, assessment and plan. copies to: Carola Fan MD; [facility] Residency Clinic YANETH ZUNIGA DO Jul 05, 2017 17:48 Megan Barry MD Jul 06, 2017 07:10
[2017-07-06] MEDS ORDERED: MeTOProlol XL 25 mg ER24 Tablet PO SCH (08:30)
== END 2017-07-05 15:43 | disposition home or self-care (01) | DRG 247 ==
LOC: PCC 18:16
PROVIDERS: ADMIT Hospitalist; ATTEND Hospitalist
PROC: 027135Z Dilation of Coronary Artery, Two Arteries with Two Drug-eluting Intraluminal Devices, Percutaneous Approach (ICD-10-PCS; principal; 2017-07-04)
PROC: 4A023N7 Measurement of Cardiac Sampling and Pressure, Left Heart, Percutaneous Approach (ICD-10-PCS; 2017-07-04)
PROC: B2111ZZ Fluoroscopy of Multiple Coronary Arteries using Low Osmolar Contrast (ICD-10-PCS; 2017-07-04)
DX: I21.4 Non-ST elevation (NSTEMI) myocardial infarction (principal); R79.89 Other specified abnormal findings of blood chemistry; K21.9 Gastro-esophageal reflux disease without esophagitis; Z82.49 Family history of ischemic heart disease and other diseases of the circulatory system; I25.10 Atherosclerotic heart disease of native coronary artery without angina pectoris